=== PATIENT | female | born 1965 | race Hispanic/Latino ===

== ENCOUNTER 2017-11-22 05:43 | Day surgery (SDC) | payer BC ==
[2017-11-14 11:11] VITALS: BMI 33.9
[2017-11-22] MEDS ORDERED: Midazolam 2 MG/2 ML VIAL ONE (07:49)
[2017-11-22] MEDS ORDERED: Propofol 10 mg/ml Inj (20 ML) ONE (07:49)
[2017-11-22] MEDS ORDERED: Phenylephrine 10 mg/ml Inj ONE (08:23)
[2017-11-22] MEDS ORDERED: HYDROmorphone 0.5 mg/0.5 ml ISec IVP PRN (08:28)
--- NOTE | 2017-11-22 08:36 | PCM.SURG1 ---
Surgeon's Initial Post Op Note - Surgeon's Notes Surgeon: Cher Parikh MD Venipuncturist: none Type of Anesthesia: General LMA Pre-Operative Diagnosis: Abnormal uterine bleeding Operative Findings: 10 week size anterverted uteurs, cervical stenosis, no adnexa masses, bilaterl ostia visulzied, submucosal fundal myoma type lesion proudcuting int cavity <50% Post-Operative Diagnosis: same as above, Operation Performed: Hysteroscopic myomectomy, fractinal dilation and currettage Specimen/Specimens Removed: submucosal myoma, endocervical currettings, endometrial currettings Estimated Blood Loss: EBL {In ML}: 5 Blood Products Given: N/A Drains Used: No Drains Post-Op Condition: Good Date of Surgery/Procedure: 11/22/17 Time of Surgery/Procedure: 08:10
[2017-11-22] MEDS ORDERED: ePHEDrine 50 mg/ml Inj ONE (08:43)
[2017-11-22 12:21] VITALS: BP 99/55; PULSE 71; RESP 20; TEMP 96.4; O2SAT 100
--- NOTE | 2017-11-22 19:14 | OP ---
PROCEDURE DATE: SURGEON: Cher Parikh MD X RAY CONSULTANT: None. TYPE OF ANESTHESIA: General LMA. PREOPERATIVE DIAGNOSIS: Abnormal uterine bleeding. OPERATIVE FINDINGS: A 10-week size anteverted uterus, cervical stenosis, no adnexal masses, bilateral ostia visualized, submucosal myoma type lesion protruding into cavity less than 50%. POSTOPERATIVE DIAGNOSIS: Abnormal uterine bleeding. OPERATION PERFORMED: Hysteroscopy, myomectomy, suction dilation and curettage, SPECIMEN REMOVED: Submucosal myoma, endocervical curettings, endometrial curettings. ESTIMATED BLOOD LOSS: 5 mL BLOOD PRODUCTS: None. COMPLICATIONS: None. DESCRIPTION OF PROCEDURE: The patient was taken to the operating room where she was given general anesthesia. Once it was found to be adequate, she was positioned on the operating table in a dorsal supine position with the legs supported using stirrups. The patient was then prepped and draped in the usual sterile fashion. A time-out was performed confirming correct patient and correct procedure. Bimanual examination was performed with the above-mentioned findings. A red rubber catheter was then inserted into the urethra to drain the bladder. 30 mL of yellow urine was obtained. A Rizvi retractor was placed on the anterior and posterior fornix of the vagina. The cervix was adequately visualized and a single-tooth tenaculum was placed in the anterior lip of the cervix. Endocervical curettings were obtained with a Harjinderian curette and sent to Pathology on [facility]. The cervix was sequentially dilated, the uterus was sounded to 7 cm. Following this, the cervix was sequentially dilated to allow for introduction of the 5-mm hysteroscope under direct visualization using normal saline as the distention media. There was bilateral ostia visualized with thick proliferative type endometrium in the cavity with a myoma type tissue anterior to the fundal region. The MyoSure device was then inserted under direct visualization and the myoma type lesion was carefully resected. The MyoSure device was then removed and a gentle curettage was done with endometrial curettings obtained and sent to pathology on [facility]. All instruments were removed. There was good hemostasis at the tenaculum puncture site. At the end of the procedure, all needle, sponge, and instrument counts were noted and correct x2. The patient tolerated the procedure well and was transferred to the recovery room in stable condition. Cher Parikh MD [facility] # [id number]
== END 2017-11-22 11:00 | disposition home or self-care (01) ==
LOC: C.SDS 05:43
PROVIDERS: ATTEND Obstetrics & Gynecology
DX: N93.9 Abnormal uterine and vaginal bleeding, unspecified (principal); Z87.891 Personal history of nicotine dependence; N80.0 Endometriosis of uterus; N88.2 Stricture and stenosis of cervix uteri; N85.4 Malposition of uterus

== ENCOUNTER 2018-09-19 10:17 | Emergency (ER) | payer BC ==
[2018-09-19 10:17] VITALS: BMI 33.9
[2018-09-19 10:53] VITALS: RESP 20
[2018-09-19 11:12] LABS: BASO % 0.5 % (0.0-2.0); EOS # 0.1 K/uL (0.0-0.7); EOS % 1.5 % (0.0-4.0); LYMPH # 2.7 K/uL (1.0-4.3); LYMPH % 37.7 % (20.0-40.0); MEAN CELL VOLUME 89.7 fL (81.0-99.0); MEAN CORPUSCULAR HEMOGLOBIN 28.9 pg (27.0-31.0); MEAN CORPUSCULAR HGB CONC 32.3 g/dL (33.0-37.0); MEAN PLATELET VOLUME 7.4 fL (7.2-11.7); MONO # 0.4 K/uL (0.0-0.8); NEUT % 55.3 % (50.0-75.0); RBC 4.15 Mil/uL (3.80-5.20); RED CELL DISTRIBUTION WIDTH 13.3 % (11.5-14.5); WHITE BLOOD COUNT 7.3 K/uL (4.8-10.8)
[2018-09-19 11:28] LABS: ALB/GLOB RATIO 1.3 (1.0-2.1); ALBUMIN 4.7 g/dL (3.5-5.0); ALT/SGPT 15 U/L (9-52); AST/SGOT 25 U/L (14-36); BLOOD UREA NITROGEN 14 mg/dL (7-17); CALCIUM 8.8 mg/dl (8.6-10.4); GFR NON-AFRICAN AMERICAN > 60
--- NOTE | 2018-09-19 11:34 | C.PDOC ---
History Of Present Illness 52yo female, otherwise well, comes to ER reporting heavy vaginal bleeding since yesterday. Patient states she had a DNC done on 11/22/17 due to abnormal vaginal bleeding, and states for 3 months after the procedure she did not have any menstrual period. Patient states then, she had spotting for 3 months but did not have heavy bleeding. She reports her LMP was on 08/28 and has lasted for 7 days; patient reports since yesterday, she has had increasingly heavy bleeding and has been soaking through her pads. Otherwise, she denies any headache, weakness, shortness of breath, or chest pain. No additional complaints. Time Seen by Provider: 09/19/18 10:37 Chief Complaint (Nursing): Female Genitourinary History Per: Patient History/Exam Limitations: no limitations Onset/Duration Of Symptoms: Days (1) Current Symptoms Are (Timing): Still Present Quality Of Discomfort: Pressure Abnormal Vaginal Bleeding: Yes Last Menstral Period: 08/28/18 Past Medical History Reviewed: Historical Data, Nursing Documentation, Vital Signs Vital Signs: Last Vital Signs Temp 98.5 F 09/19/18 10:42 Pulse 86 09/19/18 10:42 Resp 20 09/19/18 10:42 BP 136/88 09/19/18 10:42 Pulse Ox 97 09/19/18 10:42 - Medical History PMH: No Chronic Diseases Denies: Chronic Kidney Disease Other Surgeries: DnC - [facility] Procedures D & C NEC (09/11/02) INJECT/INFUSE NEC (07/27/06) LOCAL EXCIS BREAST LES (08/18/04) Family History: States: No Known Family Hx - Social History Hx Alcohol Use: Yes Hx Substance Use: No - Immunization History Hx Tetanus Toxoid Vaccination: Yes Hx Influenza Vaccination: No Hx Pneumococcal Vaccination: No Review Of Systems Except As Marked, All Systems Reviewed And Found Negative. Constitutional: Negative for: Weakness Cardiovascular: Negative for: Chest Pain, Light Headedness Respiratory: Negative for: Shortness of Breath Genitourinary: Positive for: Vaginal Bleeding Neurological: Negative for: Headache Physical Exam - Physical Exam Appears: Non-toxic, No Acute Distress Skin: Normal Color, Warm, No Pale Head: Atraumatic, Normacephalic Eye(s): bilateral: Normal Inspection Oral Mucosa: Moist Neck: Normal ROM, Supple Chest: Symmetrical Cardiovascular: Rhythm Regular, No Friction Rub, No Murmur Respiratory: Normal Breath Sounds Gastrointestinal/Abdominal: Normal Exam, Soft, No Tenderness, No Guarding, No Rebound, No Hernia Back: Normal Inspection, No CVA Tenderness Extremity: Normal ROM, No Pedal Edema, No Swelling Neurological/Psych: Oriented x3, Normal Speech, Normal Motor, Normal Sensation Gait: Steady ED Course And Treatment - Laboratory Results Result Diagrams: 09/19/18 11:08 09/19/18 11:08 Lab Results: Total Bilirubin 0.4 mg/dL (0.2-1.3) 09/19/18 11:08 AST 25 U/L (14-36) 09/19/18 11:08 ALT 15 U/L (9-52) 09/19/18 11:08 Alkaline Phosphatase 78 U/L (38-126) 09/19/18 11:08 Total Protein 8.3 g/dL (6.3-8.3) 09/19/18 11:08 Albumin 4.7 g/dL (3.5-5.0) 09/19/18 11:08 Globulin 3.6 gm/dL (2.2-3.9) 09/19/18 11:08 Albumin/Globulin Ratio 1.3 (1.0-2.1) 09/19/18 11:08 O2 Sat by Pulse Oximetry: 97 (RA) Pulse Ox Interpretation: Normal - CT Scan/US US Transvaginal Other Rad Studies (CT/US): Radiology Report Reviewed CT/US Interpretation: FINDINGS: The uterus is anteverted and measures 9.1 x 4.9 x 6.3 cm. Anterior fundal fibroid intramural measuring 2.1 x 1.7 x 3.1 cm in size is noted. A posterior mid to upper uterine segment intramural fibroid is also present measuring 1.5 x 1.1 x 1.5 cm. There is also some of the apparent posterior fundal intra mural 5 mm calcification which may relate to a old degenerated fibroadenoma. Endometrium is 7 mm and smooth-within normal limits. No cul-de-sac fluid seen. Right ovary not visualized. Left ovary measures 2.2 x 1.5 x 2.4 cm. Peripheral follicles present the largest measuring 1.3 x 0.7 x 1.1 cm. Left ovary with normal flow. IMPRESSION: Unremarkable appearing endometrium. Multiple fibroids mostly intramural. Right ovary not visualized. Normal appearing left ovary as above. Medical Decision Making Medical Decision [place] female with heavy vaginal bleeding; recent LMP on 08/28/18 Plan: -- Labs -- US Transvaginal -- Urine HCG -- Urinalysis [address] Parikh, patient's OBGYN who states since patient is hemodynamically stable, there is no indication of admission/OR procedure at this time. She states patient can be discharged home with prescription for Lysteda. On re-exam, patient is resting comfortably and appears in no distress; heart and lung sounds are normal. Abdomen is soft, non-tender and tolerating PO well. Ambulatory in the ED with steady gait. Patient informed plan for discharge and is agreeable. Informed to follow up with Dr. Parikh tomorrow. Disposition - Disposition Referrals: Cher Parikh MD [Staff Provider] - Disposition: HOME/ ROUTINE Disposition Time: 13:50 Condition: STABLE Additional Instructions: Follow up with the OBGYN within 1-2 days without fail, return if worsened. Instructions: Uterine Fibroids (DC) Forms: [employer] (Yi) - Clinical Impression Clinical Impression: Uterine fibroid - PA / FORENSIC SCIENTIST / Resident Statement MD/DO has reviewed & agrees with the documentation as recorded. - Scribe Statement The provider has reviewed the documentation as recorded by the Charis Sofia Provider Attestation: All medical record entries made by the Charis were at my direction and personally dictated by me. I have reviewed the chart and agree that the record accurately reflects my personal performance of the history, physical exam, medical decision making, and the department course for this patient. I have also personally directed, reviewed, and agree with the discharge instructions and disposition.
[2018-09-19 12:05] LABS: HCG,QUALITATIVE URINE NEGATIVE (NEGATIVE)
[2018-09-19 12:15] LABS: URINE BACTERIA RARE (<OCC); URINE BILIRUBIN NEGATIVE (NEGATIVE); URINE BLOOD 3+ (NEGATIVE); URINE GLUCOSE (UA) NORMAL (Normal); URINE LEUKOCYTE ESTERASE TRACE Leu/uL (Negative); URINE PROTEIN 2+ mg/dL (NEGATIVE); URINE UROBILINOGEN NORMAL mg/dL (0.2-1.0)
[2018-09-19 12:17] LABS: URINE CLARITY SLIGHT-CLOUDY (Clear)
[2018-09-19 12:18] LABS: URINE COLOR Red (YELLOW)
--- NOTE | 2018-09-19 13:22 | US ---
Date of service: 09/19/2018 PROCEDURE: HISTORY: heavy vaginal bleeding. 52-year-old female. LMP 09/18/2018. Urine HCG level negative. COMPARISON: None TECHNIQUE: Transabdominal and transvaginal scanning FINDINGS: The uterus is anteverted and measures 9.1 x 4.9 x 6.3 cm. Anterior fundal fibroid intramural measuring 2.1 x 1.7 x 3.1 cm in size is noted. A posterior mid to upper uterine segment intramural fibroid is also present measuring 1.5 x 1.1 x 1.5 cm. There is also some of the apparent posterior fundal intra mural 5 mm calcification which may relate to a old degenerated fibroadenoma. Endometrium is 7 mm and smooth-within normal limits. No cul-de-sac fluid seen. Right ovary not visualized. Left ovary measures 2.2 x 1.5 x 2.4 cm. Peripheral follicles present the largest measuring 1.3 x 0.7 x 1.1 cm. Left ovary with normal flow. IMPRESSION: Unremarkable appearing endometrium. Multiple fibroids mostly intramural. Right ovary not visualized. Normal appearing left ovary as above.
[2018-09-19 14:12] VITALS: BP 117/85; PULSE 72; TEMP 98.3
[2018-09-24 14:00] VITALS: O2SAT 97
== END 2018-09-19 14:10 | disposition home or self-care (01) ==
LOC: C.ER 10:17
DX: D25.9 Leiomyoma of uterus, unspecified (principal)
CPT/HCPCS: 76830; 76856; 80053; 81001; 84703; 85025; 96374; 99284; J1885

== ENCOUNTER 2018-09-24 10:39 | Outpatient (CLI) | payer BC | END 2018-09-24 10:40 | disposition home or self-care (01) | LOC: C.PAT 10:39 | DX: N93.9 Abnormal uterine and vaginal bleeding, unspecified (principal) ==

== ENCOUNTER 2018-10-17 07:30 | Day surgery (SDC) | payer BC ==
[2018-09-24 11:12] VITALS: BMI 33.9
[2018-10-17] MEDS ORDERED: Propofol 10 mg/ml Inj (20 ML) ONE (09:08)
[2018-10-17] MEDS ORDERED: HYDROmorphone 0.5 mg/0.5 ml ISec IVP PRN (09:47)
[2018-10-17 11:18] VITALS: RESP 16
[2018-10-17 12:08] VITALS: BP 129/64; PULSE 75; TEMP 97.9; O2SAT 97
--- NOTE | 2018-10-18 06:16 | OP ---
PROCEDURE DATE: 10/17/2018 PREOPERATIVE DIAGNOSIS: Abnormal uterine bleeding, uterine fibroids. POSTOPERATIVE DIAGNOSIS: Abnormal uterine bleeding, uterine fibroids. PROCEDURE PERFORMED: Hysteroscopic myomectomy, dilation and curettage. ANESTHESIA: General LMA. ESTIMATED BLOOD LOSS: 5 mL. COMPLICATIONS: None. OPERATIVE FINDINGS: An 8- to [id number] anteverted uterus. Myoma noted along the anterior uterine wall, carefully resected. Endometrial ablation carefully performed with uterine length of 6 cm, uterine width of 4.2, endometrial ablation time 36 seconds, bilateral ostia visualized. SPECIMENS: Endocervical curettings, endometrial curettings, submucosal myoma. DESCRIPTION OF PROCEDURE: The patient was taken to the operating room, where she was given general anesthesia. Once it was found to be adequate, she was positioned on the operating table in dorsal lithotomy position with legs supported using stirrups. The patient was then prepped and draped in the usual sterile fashion. A time-out was performed confirming correct patient and correct procedure. Bimanual exam was performed with the above-mentioned findings. A Rizvi retractor was placed in the anterior and posterior fornix of the vagina. The cervix was adequately visualized. A single-tooth tenaculum was placed in the anterior lip of the cervix. Endocervical curettings were obtained with a Kevjacklynian curette and sent to Pathology on [facility]. The uterus was then sounded to 8 cm. Following this, the cervix was sequentially dilated to allow for introduction of the hysteroscope under direct visualization using normal saline as the distention media. There was a myoma noted along the anterior uterine wall. Bilateral ostia were visualized. MyoSure device was inserted and the mass was then carefully resected. The hysteroscope was then removed. Gentle curettage was done. Specimens sent to Pathology were endometrial curettings. The NovaSure device was then evaluated. The cervical length was then measured cm. The NovaSure device was then inserted to obtain the cavity width. Cavity had passed the assessment. It was then activated. The ablation was then successful for . The NovaSure device was carefully removed as per software engineering supervisor's instruction. The hysteroscope was then reintroduced. There was good ablation noted. All instruments were removed. At the end of the procedure, all needle, sponge and instrument counts were noted to be correct x2. The patient tolerated the procedure well and was transferred to the recovery room in stable condition. Cher Parikh MD
== END 2018-10-17 12:03 | disposition home or self-care (01) ==
LOC: C.SDS 07:30
PROVIDERS: ATTEND Obstetrics & Gynecology
DX: D25.0 Submucous leiomyoma of uterus (principal); N72 Inflammatory disease of cervix uteri; N93.9 Abnormal uterine and vaginal bleeding, unspecified; I10 Essential (primary) hypertension; Z98.51 Tubal ligation status; Z98.890 Other specified postprocedural states; Z79.899 Other long term (current) drug therapy
CPT/HCPCS: 58561; 88305; J2405; J2704; J3010